=== PATIENT | female | born 1995 | race Caucasian/White ===

== ENCOUNTER 2021-06-27 17:15 | Emergency (ER) | payer OTHER ==
[2021-06-28 18:29] LABS: SARS-CoV-2 PCR by NAA DETECTED (NotDetected)
== END 2021-06-27 18:13 | disposition home or self-care (01) ==
LOC: CSHERS 17:15
DX: U07.1 COVID-19 (principal); K21.9 Gastro-esophageal reflux disease without esophagitis; F17.210 Nicotine dependence, cigarettes, uncomplicated
CPT/HCPCS: 99283; U0003; U0005